=== PATIENT | male | born 1945 | race Two or more races ===

== ENCOUNTER 2024-09-29 11:55 | Inpatient (IN) | payer OTHER ==
[~2024-09-29] VITALS: Ht 182.9 cm; Wt 72.5 kg
--- NOTE | 2024-09-29 12:19 | ED.PDOC ---
History of Present Illness HPI Comments 79-year-old male who comes in with chief complaint of rectal bleeding today. The patient was currently on warfarin for atrial fibrillation and possible DVT in the left leg. The patient was currently at [facility] and they noticed a significant amount of blood so they called 911. When the paramedics arrived, the patient had stable vital signs. The patient was complaining of some chest pain but no shortness for breath. Patient had some lab work done recently and the INR was significantly elevated. EN route, the patient's Accu- Chek was 96. The patient was able to answer all of her questions but the patient's seems somewhat pale. He is also complaining of some abdominal pain. 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 Location: Generalized abdominal pain Past Medical History PAST MEDICAL HISTORY: AFIB, PE Past Medical History (Other): DVT Constitutional: denies: chills, diaphoresis, fatigue, fever, malaise, sweats, weakness, others EENTM: denies: blurred vision, double vision, ear bleeding, ear discharge, ear drainage, ear pain, ear ringing, eye pain, eye redness, hearing loss, mouth pain, mouth swelling, nasal discharge, nose bleeding, nose congestion, nose pain, photophobia, tearing, throat pain, throat swelling, voice changes, others Respiratory: denies: cough, hemoptysis, orthopnea, SOB at rest, shortness of breath, SOB with excertion, stridor, wheezing, others Cardiovascular: reports: chest pain; denies: dizzy spells, diaphoresis, Dyspnea on exertion, edema, irregular heart beat, left arm pain, lightheadedness, palpi tations, PND, syncope, others Gastrointestinal: reports: abdominal pain, rectal bleeding; denies: abdomen distended, blood streaked bowels, constipated, diarrhea, dysphagia, difficulty swallowing, hematemesis, melena, nausea, poor appetite, poor fluid intake, rectal pain, vomiting, others Genitourinary: denies: burning, dysuria, flank pain, frequency, hematuria, incontinence, penile discharge, penile sore, pain, testicle pain, testicle swelling, urgency, others Neurological: denies: dizziness, fainting, headache, left sided numbness, left sided weakness, numbness, paresthesia, pre-existing deficit, right sided numbness, right sided weakness, seizure, speech problems, tingling, tremors, weakness, others Musculoskeletal: reports: others (Bleeding around the PICC line on the left arm); denies: back pain, gout, joint pain, joint swelling, muscle pain, muscle stiffness, neck pain Integumetry: denies: bruises, change in color, change in hair/nails, dryness, laceration, lesions, lumps, rash, wounds, others Allergic/Immunocompromised: denies: Difficulty Healing, Frequent Infections, Hives, Itching, others Hematologic/Lymphatic: denies: anemia, blood clots, easy bleeding, easy brui sing, swollen glands, others Endocrine: denies: excessive hunger, excessive sweating, excessive thirst, ex cessive urination, flushing, intolerance to cold, intolerance to heat, unexplained weight gain, unexplained weight loss, others Psychiatric: denies: anxiety, bipolar disorder, depression, hopeless, panic disorder, schizophrenia, sleepless, suicidal, others Physical Exam General Appearance: Moderate Distress, Obese HEENT: Pale Conjuntivae (L), Pale Conjuntivae (R), Pharynx Normal, TMs Normal Neck: Full Range of Motion, Non-Tender, Normal, Normal Inspection Respiratory: Chest Non-Tender, Lungs Clear, No Accessory Muscle Use, No Respiratory Distress, Normal Breath Sounds Cardiovascular: No Edema, No JVD, No Murmur, No Gallop, Normal Peripheral Pulses, Regular Rate/Rhythm Breast Exam: Deferred Gastrointestinal: Diffuse, No Organomegaly, No Pulsatile Mass, Normal Bowel Sounds, Soft, Tenderness Genitalia: Deferred Pelvic: Deferred Rectal: Heme positive stool Extremities: No calf tenderness, Normal capillary refill, No pedal edema Musculoskeletal : Apperance: Normal Neurologic: Alert, 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 Was a procedure done?: No EKG EKG : Pulse Rate (adult): 92 [place]: Normal Cardiac Rhythm: Afib Hypertrophy: LVH ST: Nonsp Differential Dx Considerations may include: AFib, GI bleed, anemia, generalized weakness X-Ray, Labs, Meds, VS Vital Signs Date Time Temp Pulse Resp B/P (MAP) Pulse Ox O2 Delivery O2 Flow Rate FiO2 09/29/24 12:35 97.5 103 20 97/61 (73) 91 97.5 09/29/24 12:06 92 09/29/24 12:05 98.4 82 18 100/64 (76) 94 Lab Test 09/29/24 12:25 Range/Units White Blood Count 6.7 4.4-10.8 10^3/uL Red Blood Count 3.75 L 4.5-5.90 10^6/uL Hemoglobin 12.2 L 13.5-17.5 g/dL Hematocrit 36.4 L 41.0-53.0 % Mean Corpuscular Volume 97.2 80.0-100.0 fL Mean Corpuscular Hemoglobin 32.7 H 28.0-32.0 pg Mean Corpuscular Hemoglobin Concent 33.6 32.0-36.0 g/dL Red Cell Distribution Width 18.3 H 11.8-14.3 % Platelet Count 170 140-450 10^3/uL Mean Platelet Volume 7.2 6.9-10.8 fL Neutrophils (%) (Auto) 77.3 37.0-80.0 % Lymphocytes (%) (Auto) 12.3 10.0-50.0 % Monocytes (%) (Auto) 5.2 0.0-12.0 % Eosinophils (%) (Auto) 4.1 0.0-7.0 % Basophils (%) (Auto) 1.1 0.0-2.0 % Neutrophils # (Auto) 5.2 1.6-8.6 10 ^3/uL Lymphocytes # (Auto) 0.8 0.4-5.4 10 ^3/uL Monocytes # (Auto) 0.3 0-1.3 10 ^3/uL Eosinophils # (Auto) 0.3 0-0.8 10 ^3/uL Basophils # (Auto) 0.1 0-0.2 10 ^3/uL Nucleated Red Blood Cells 0.0 % Prothrombin Time 9.3-11.8 sec Prothrombin Time INR > 8.0 *H 0.9-1.15 Activated Partial Thromboplast Time 68.7 H 24.5-34.5 SEC Sodium Level 138 136-145 mmol/L Potassium Level 4.4 3.5-5.1 mmol/L Chloride Level 104 98-107 mmol/L Carbon Dioxide Level 26 20-31 mmol/L Anion Gap 8 5-15 Blood Urea Nitrogen 36 H 9-23 mg/dL Creatinine 1.86 H 0.700-1.30 mg/dL Glomerular Filtration Rate Calc 37 >90 mL/min BUN/Creatinine Ratio 19.4 10.0-20.0 Serum Glucose 87 74-106 mg/dL Calcium Level 11.1 H 8.7-10.4 mg/dL Current Medications Medications (Trade) Dose Ordered Sig/Leola Route Start Time Stop Time Status Last Admin Sodium Chloride 500 ml @ 500 mls/hr Q1H ONCE IV 09/29/24 12:15 09/29/24 13:14 DC 09/29/24 12:39 Phytonadione (Vitamin K Oral Susp) 10 mg ONCE ONCE PO 09/29/24 13:30 09/29/24 13:31 DC 09/29/24 14:20 IV Hep-Lock was established We did type and screen the patient The patient was bolused with normal saline at a 500 cc bolus The CBC is within normal limits The chemistry panel shows a BUN of 36 and creatinine of 1.86 The INR is greater than 8.0 At this time, we did contact [place] and they gave us authorization for admission The doctor was Dr. Lamar The authorization #[id number] The patient was being admitted because the patient was unstable for transfer secondary to the active bleeding Images Reviewed?: Images reviewed and evaluated by me Time of 1ST Reevaluation: 13:23 Reevaluation 1ST: Unchanged Patient Education/Counseling: Diagnosis, Treatment, Prognosis Family Education/Counseling: No Family Present Departure 1 Departure Time of Disposition: 14:53 Impression: Primary Impression: Lower GI bleed Additional Impression: Elevated INR Disposition: 09 ADMITTED INPATIENT Admit to: [facility] Condition: Fair Critical Care Note Critical Care Time?: Yes (35 min-critical care time only) Stability Stability form required: Yes Unstable for transfer: Telemetry monitoring (Telemetry monitoring required), ED Physician Assesment (Clinical assesment) Heart Score Heart Score: Heart Score Response (Comments) Value History N/A 0 EKG N/A 0 Age N/A 0 Risk Factors N/A 0 Troponin N/A 0 Total 0 KERRY GONZALES MD Sep 29, 2024 12:19
[2024-09-29 12:30] VITALS: PULSE 95; RESP 16; O2SAT 93
[2024-09-29] MEDS: SODIUM CHLORIDE 0.9% 500 ML IV ONE (12:39)
[2024-09-29 12:47] LABS: Basophils # (auto) 0.1 10 ^3/uL (0-0.2); Basophils % (auto) 1.1 % (0.0-2.0); Eosinophils # (auto) 0.3 10 ^3/uL (0-0.8); Eosinophils % (auto) 4.1 % (0.0-7.0); Hematocrit 36.4 % (41.0-53.0); Hemoglobin 12.2 g/dL (13.5-17.5); Lymphocytes # (auto) 0.8 10 ^3/uL (0.4-5.4); Lymphocytes % (auto) 12.3 % (10.0-50.0); Mean Corpuscular Hemoglobin 32.7 pg (28.0-32.0); Mean Corpuscular Hgb Conc. 33.6 g/dL (32.0-36.0); Mean Corpuscular Volume 97.2 fL (80.0-100.0); Monocytes # (auto) 0.3 10 ^3/uL (0-1.3); Monocytes % (auto) 5.2 % (0.0-12.0); Neutrophils # (auto) 5.2 10 ^3/uL (1.6-8.6); Neutrophils % (auto) 77.3 % (37.0-80.0); Platelet Count (auto) 170 10^3/uL (140-450); Red Blood Cells 3.75 10^6/uL (4.5-5.90); Red Cell Distribution Width 18.3 % (11.8-14.3); White Blood Cell 6.7 10^3/uL (4.4-10.8)
[2024-09-29 13:04] LABS: Anion Gap 8 (5-15); Carbon Dioxide 26 mmol/L (20-31); Chloride 104 mmol/L (98-107); Potassium 4.4 mmol/L (3.5-5.1); Sodium 138 mmol/L (136-145)
[2024-09-29 13:10] LABS: BUN/Creatinine Ratio 19.4 (10.0-20.0); Glucose 87 mg/dL (74-106)
[2024-09-29 13:12] LABS: Blood Urea Nitrogen 36 mg/dL (9-23); Calcium 11.1 mg/dL (8.7-10.4)
[2024-09-29 13:19] LABS: Partial Thromboplastin Time 68.7 SEC (24.5-34.5)
[2024-09-29 13:21] LABS: INR > 8.0 (0.9-1.15)
[2024-09-29] MEDS ORDERED: DOCUSATE SOD 100 MG CAP PO PRN (14:00)
[2024-09-29] MEDS ORDERED: ACETAMINOPHEN 325 MG TAB PO PRN (14:00)
[2024-09-29] MEDS ORDERED: MAALOX PLUS or MAALOX 30 ML PO PRN (14:00)
[2024-09-29] MEDS ORDERED: LORazepam 0.5 MG TAB PO PRN (14:00)
--- NOTE | 2024-09-29 14:19 | DVH ---
CHEST RADIOGRAPH Indication: Patient has a PICC line as well as a GI bleed Technique: Single frontal view of the chest was obtained Comparison: None FINDINGS: Lines and Tubes: None. Left-sided approach single lead pacemaker terminating within the right ventri justin. There is a tubular structure coursing through the medial right upper extremity, through the lowe r axillary region and across of the right mid lung zone which is most likely external to the patient. Lungs: Diffuse interstitial prominence. Obscuration of the left hemidiaphragm lucency superimposed o jed the cardiac silhouette. No pneumothorax. Cardiomediastinal contours: Borderline cardiomegaly with [id number] atherosclerotic calcificati on and uncoiling of the aorta. Bones: No acute osseous abnormality. Partially visualized thoracolumbar hardware. IMPRESSION: Mild pulmonary vascular congestion. Obscuration of the left hemidiaphragm with retrocardiac lucency. Correlate for gas-filled superimpos ed stomach over the cardiac silhouette from elevated hemidiaphragm with no hernia noted on same day C T abdomen and pelvis. Underlying small left-sided pleural effusion/ atelectasis / pneumonia cannot e xcluded. The PICC is not definitely visualized.
[2024-09-29] MEDS: PHYTONADIONE(VitK) ORAL Susp 10mg/10ml(1mg/ml) PO ONE (14:20)
--- NOTE | 2024-09-29 14:39 | DVH ---
Exam: CT CT AB PEL WO CON-NO ORAL OR IV History: pain Comparison Study: None Technique: Multidetector spiral CT of the abdomen was performed from lung bases to pubic symphysis. Imaging was performed without IV contrast. Axial, coronal and sagittal multiplanar reformats were ob tained from the axial data set by the technologist. Radiation Dose : 1. Abdomen/Pelvis: CTDIvol 24.6 mGy, DLP 1593.84 mGy*cm. Findings: Evaluation of solid organs is limited due to lack of intravenous contrast use. Lung Bases: There is a 1.0 x 0.7 cm nodule in the right middle lobe. Scattered linear/ interstitial d ensities at the lung bases may represent scarring and/or atelectasis . There is coronary artery calci fication and/or stents. Partial visualization of pacemaker leads. There are several small calcified l ymph nodes in the visualized chest which are commonly due to old granulomatous disease. Liver: The liver is normal in size. No focal lesions. Gallbladder and Biliary Tree: Gallbladder is surgically absent. Mild prominence of the common bile du ct is likely secondary to post surgical change. Spleen: Unremarkable Pancreas: The pancreas is grossly normal in appearance. Adrenal Glands: Unremarkable Kidneys: 6 mm exophytic density from the right kidney which is too small to characterize. There is a poorly defined exophytic density from the left inferior renal pole that measures about 1.0 cm and att enuates higher than simple fluid. No hydronephrosis or renal calculi. Bladder: Mild urinary bladder wall thickening. Several small urinary bladder diverticula. Bowel: The stomach is grossly normal in appearance. Small bowel and colon are normal in caliber and d istribution. The appendix is not visualized; however, no secondary findings of acute appendicitis id entified. Moderate rectal stool. Minimal colonic diverticulosis without evidence of diverticulitis. Ascites: Absent Lymphadenopathy: No mesenteric, retroperitoneal or periportal lymphadenopathy. Abdominal Wall and Mesentery: There is a 1.7 x 0.8 cm soft tissue density focus in the subcutaneous r ight flank region. Vasculature: The visualized abdominal aorta is normal in size and caliber. Evaluation of abdominal a nd pelvic vessels is limited due to lack of intravenous contrast. An IVC filter is in place. Pelvic Organs: Prostate is nonenlarged and has internal calcification. Musculoskeletal: Lumbar dextrocurvature. Extensive postsurgical changes in the spine related to poste rior fusion. The visualized hardware appears grossly intact. Advanced multilevel degenerative disc ch anges with bridging anterior osteophytes in the thoracic and lumbar spine. IMPRESSION: 1. No evidence of bowel obstruction. Moderate stool within the rectum. 2. Urinary bladder demonstrates mild wall thickening and several small diverticula. Findings could b e related to bladder outlet obstruction or chronic inflammation. 3. Nonspecific soft tissue focus in the subcutaneous right flank region. This is somewhat linear and may represent scarring or another benign process. 4. Small poorly defined left renal hypodensity in the inferior pole that attenuates higher than simpl e fluid. Recommend correlation with nonemergent ultrasound. 5. Mild bibasilar atelectasis/ scarring. There is also a 1.0 x 0.7 cm nodule in the right middle lob e. Recommend correlation with nonemergent CT chest. Radiation optimization: All CT scans at this facility use at least one of these dose optimization zahc hniques: automated exposure control mA and/or kV adjustment per patient size (includes targeted exam s where dose is matched to clinical indication) or iterative reconstruction.
--- NOTE | 2024-09-29 14:45 | DVHHP2 ---
History of Present Illness Reason for Visit: gi bleed History of Present Illness 79-year-old with a past medical history of AFib PE and DVT comes to the ED with complaints of having active rectal bleeding patient states that he is currently taking warfarin to manage his AFib and also states that he has been diagnosed with a left-sided DVT patient is from a nursing facility and states that he has been having significant amounts of blood in his stool on initial evaluation in the ED patient was hemodynamically stable however it was noted that his blood pressure was slightly labile H&H has currently remained stable however patient was recommended for inpatient evaluation and continued management for suspected acute GI bleed Cardiovascular: AFIB, HTN Review of Systems Constitutional: Yes: Weakness; No: Fever, Chills, Sweats, Malaise, Other Eyes: No: Pain, Vision change, Conjunctivae inflammation, Eyelid inflammation, Other, Redness ENT: No: Ear pain, Ear discharge, Nose pain, Nose discharge, Nose congestion, Mouth pain, Mouth swelling, Throat pain, Throat swelling, Other Respiratory: No: Cough, Dry, Shortness of breath, SOB with excertion, Wheezing, Hemoptysis, Pleuritic Pain, Sputum, Wheezing, Other Cardiovascular: Palpitations; No: Chest Pain, Orthopnea, Paroxysmal Noc. Dyspnea, Edema, Lt Headedness, Other Gastrointestinal: Melena; No: Nausea, Vomiting, Abdominal Pain, Diarrhea, Constipation, Hematochezia, Other Genitourinary: No Dysuria, No Frequency, No Incontinence, No Hematuria, No Retention, No Other Musculoskeletal: No: other, neck pain, shoulder pain, arm pain, back pain, hand pain, leg pain, foot pain Skin: No: Rash, Lesions, Jaundice, Bruising, Other Neurological: No: Weakness, Numbness, Incoordination, Change in speech, Confusion, Seizures, Other Allergies: Coded Allergies: NO KNOWN ALLERGIES (Unverified , 09/29/24) Medications Current Medications Medications Dose Ordered Sig/Leola Route Start Time Stop Time Status Last Admin Dose Admin Pantoprazole Sodium 50 ml @ 10 mls/hr Q5H IV 09/29/24 14:00 UNV Sodium Chloride 1,000 ml @ 60 mls/hr [id number] IV 09/29/24 14:00 UNV Lorazepam 0.5 mg Q6HP PRN PO 09/29/24 14:00 UNV Al Hydrox/Mg Hydrox/Simethicone 30 ml Q6HP PRN PO 09/29/24 14:00 UNV Docusate Sodium 100 mg BIDPRN PRN PO 09/29/24 14:00 UNV Acetaminophen 650 mg Q6HP PRN PO 09/29/24 14:00 UNV Acetaminophen/ Hydrocodone Bitart 1 tab Q4HP PRN PO 09/29/24 14:00 UNV Ondansetron HCl 4 mg Q4HP PRN IV 09/29/24 14:00 UNV Morphine Sulfate 2 mg Q4HPRN PRN IV 09/29/24 14:00 UNV Exam Vital Signs Vital Signs Date Time Temp Pulse Resp B/P (MAP) Pulse Ox O2 Delivery O2 Flow Rate FiO2 09/29/24 12:35 97.5 103 20 97/61 (73) 91 97.5 General Appearance: Alert, Oriented X3 HEENT: Atraumatic, PERRLA Respiratory: Clear to auscultation, Normal air movement Cardiovascular: Regular rate, Normal S1, Normal S2 Abdominal: Normal bowel sounds, Soft, No tenderness Extremities: No clubbing, No cyanosis, No edema Skin: No rashes, No breakdown Neuro: Normal gait, Normal speech Psych/Mental Status: Mood NL Labs/Xrays Labs Test 09/29/24 12:25 Range/Units White Blood Count 6.7 4.4-10.8 10^3/uL Red Blood Count 3.75 L 4.5-5.90 10^6/uL Hemoglobin 12.2 L 13.5-17.5 g/dL Hematocrit 36.4 L 41.0-53.0 % Mean Corpuscular Volume 97.2 80.0-100.0 fL Mean Corpuscular Hemoglobin 32.7 H 28.0-32.0 pg Mean Corpuscular Hemoglobin Concent 33.6 32.0-36.0 g/dL Red Cell Distribution Width 18.3 H 11.8-14.3 % Platelet Count 170 140-450 10^3/uL Mean Platelet Volume 7.2 6.9-10.8 fL Neutrophils (%) (Auto) 77.3 37.0-80.0 % Lymphocytes (%) (Auto) 12.3 10.0-50.0 % Monocytes (%) (Auto) 5.2 0.0-12.0 % Eosinophils (%) (Auto) 4.1 0.0-7.0 % Basophils (%) (Auto) 1.1 0.0-2.0 % Neutrophils # (Auto) 5.2 1.6-8.6 10 ^3/uL Lymphocytes # (Auto) 0.8 0.4-5.4 10 ^3/uL Monocytes # (Auto) 0.3 0-1.3 10 ^3/uL Eosinophils # (Auto) 0.3 0-0.8 10 ^3/uL Basophils # (Auto) 0.1 0-0.2 10 ^3/uL Nucleated Red Blood Cells 0.0 % Prothrombin Time 9.3-11.8 sec Prothrombin Time INR > 8.0 *H 0.9-1.15 Activated Partial Thromboplast Time 68.7 H 24.5-34.5 SEC Sodium Level 138 136-145 mmol/L Potassium Level 4.4 3.5-5.1 mmol/L Chloride Level 104 98-107 mmol/L Carbon Dioxide Level 26 20-31 mmol/L Anion Gap 8 5-15 Blood Urea Nitrogen 36 H 9-23 mg/dL Creatinine 1.86 H 0.700-1.30 mg/dL Glomerular Filtration Rate Calc 37 >90 mL/min BUN/Creatinine Ratio 19.4 10.0-20.0 Serum Glucose 87 74-106 mg/dL Calcium Level 11.1 H 8.7-10.4 mg/dL Assessment/Plan Assessment/Plan Admit to [facility] Suspected acute GI bleed Unconfirmed if it is upper or lower GI bleed In his case of action GI consult IV hydration NPO IV Protonix drip Monitor for acute signs of infection Patient was signs dehydration with a elevated BUN and creatinine Repeat a.m. labs monitor for acute improvement Elevated hypercalcemia also noted underlying cause unconfirmed at this time We will continue with current plan of IV hydration management History of AFib/DVT Due to current complaint acute GI bleed We will hold all anticoagulation at this time Plan discussed with: Patient My Orders Orders - JOAQUIN RODRIGUEZ MD Procedure Category Date Status Time * Gi [facility] CONS 09/29/24 Transmitted 14:00 Pantoprazole PHA 09/29/24 Logged 40mg/50ml Ns Ae 14:00 Admit ADMIT 09/29/24 Transmitted 14:00 Code Status CODE 09/29/24 Transmitted 14:00 Vital Signs [facility] 09/29/24 In Process 14:00 Review Orders With [facility] 09/29/24 In Process Adm. 14:00 Npo (Nothing By DIET 09/29/24 Transmitted Mouth) Diet Dinner Sodium Chloride 0.9% PHA 09/29/24 Logged 14:00 Lorazepam Tablet PHA 09/29/24 Logged (Ativan Tablet) 14:00 Alum & Mag PHA 09/29/24 Logged Hydrox-Simethicone 14:00 Docusate Sodium PHA 09/29/24 Logged Capsule (Colace 14:00 Acetaminophen Tablet PHA 09/29/24 Logged (Tylenol Tablet) 14:00 Notify Of Changes [facility] 09/29/24 In Process From Base 14:00 Advance Directive [facility] 09/29/24 In Process 14:00 Basic Metabolic Panel LAB 09/30/24 Verified 04:00 Complete Blood Count LAB 09/30/24 Verified 04:00 Patient Condition ORDERS 09/29/24 Transmitted 14:00 Allergies [facility] 09/29/24 In Process 14:00 Hydrocodone-Acet PHA 09/29/24 Logged 5/325mg Tab ([place] 14:00 Ondansetron Hcl PHA 09/29/24 Logged (Zofran) 14:00 Morphine Sulfate PHA 09/29/24 Logged Injection 14:00 Notify Md Of Changes [facility] 09/29/24 In Process From Base 14:00 Oxygen By Nasal RT 09/29/24 Transmitted Cannula 14:00 Problem List: (1) Chronic a-fib (2) GIB (gastrointestinal bleeding) Date of Service: Sep 29, 2024 Billing Provider: JOAQUIN RODRIGUEZ MD Common Visit Codes: 29198-[id number] INP/OBS CARE (HIGH) JOAQUIN RODRIGUEZ MD Sep 29, 2024 14:45
[2024-09-29] MEDS: SODIUM CHLORIDE 0.9% 1,000 ML IV SCH (15:21)
[2024-09-29] MEDS: PANTOPRAZOLE 40mg/50ML NS AE 50 ML IV SCH (15:21)
[2024-09-29 20:21] VITALS: PULSE 119; RESP 16; O2SAT 96
[2024-09-29] MEDS: HYDROcodone-ACET 5/325MG TAB PO PRN (20:56)
[2024-09-29 21:06] LABS: Basophils % (auto) 0.9 % (0.0-2.0); Eosinophils # (auto) 0.3 10 ^3/uL (0-0.8); Hemoglobin 12.1 g/dL (13.5-17.5); Monocytes # (auto) 0.3 10 ^3/uL (0-1.3); Nucleated Red Blood Cells % 0.1 %; Red Blood Cells 3.66 10^6/uL (4.5-5.90); White Blood Cell 5.4 10^3/uL (4.4-10.8)
[2024-09-29 21:11] LABS: Basophils # (auto) 0 10 ^3/uL (0-0.2); Hematocrit 35.7 % (41.0-53.0); Lymphocytes # (auto) 0.6 10 ^3/uL (0.4-5.4); Lymphocytes % (auto) 11.7 % (10.0-50.0); Mean Corpuscular Hgb Conc. 33.9 g/dL (32.0-36.0); Mean Corpuscular Volume 97.5 fL (80.0-100.0); Monocytes % (auto) 5.6 % (0.0-12.0); Neutrophils # (auto) 4.2 10 ^3/uL (1.6-8.6); Neutrophils % (auto) 76.8 % (37.0-80.0); Platelet Count (auto) 151 10^3/uL (140-450)
[2024-09-29 21:18] LABS: Urine Bacteria None Seen /hpf (None Seen)
[2024-09-29 22:21] LABS: Urine Blood 3+ /uL (Negative); Urine Clarity Turbid (Clear); Urine Color Light-Orange (Yellow); Urine Hyaline Cast FEW /lpf (0 - 2); Urine Protein, UAD 1+ (Negative); Urine Specific Gravity 1.018 (1.001-1.035); Urine Urobilinogen Normal (Negative); Urine WBC 29 /hpf (0 - 3); Urine pH 5.5 (5.0-9.0)
[2024-09-29 22:31] LABS: INR > 8.0 (0.9-1.15)
[2024-09-30] VITALS (10 sets, daily range): BP systolic 101–121; BP diastolic 62–70; PULSE 87–119; RESP 16–18; TEMP 97.9–98.7; O2SAT 98–99
[2024-09-30] MEDS: MORPHINE SULFATE INJ 2 MG/ml SYRG IV PRN (02:14)
[2024-09-30 04:07] LABS: Basophils # (auto) 0 10 ^3/uL (0-0.2); Basophils % (auto) 0.9 % (0.0-2.0); Eosinophils # (auto) 0.3 10 ^3/uL (0-0.8); Eosinophils % (auto) 5.4 % (0.0-7.0); Hemoglobin 11.2 g/dL (13.5-17.5); Lymphocytes # (auto) 0.7 10 ^3/uL (0.4-5.4); Lymphocytes % (auto) 12.5 % (10.0-50.0); Mean Corpuscular Hemoglobin 33.3 pg (28.0-32.0); Mean Corpuscular Hgb Conc. 32.9 g/dL (32.0-36.0); Mean Corpuscular Volume 101.1 fL (80.0-100.0); Monocytes # (auto) 0.4 10 ^3/uL (0-1.3); Monocytes % (auto) 6.6 % (0.0-12.0); Neutrophils # (auto) 4.1 10 ^3/uL (1.6-8.6); Neutrophils % (auto) 74.6 % (37.0-80.0); Nucleated Red Blood Cells % 0.1 %; Platelet Count (auto) 135 10^3/uL (140-450); Red Blood Cells 3.36 10^6/uL (4.5-5.90); Red Cell Distribution Width 18.8 % (11.8-14.3); White Blood Cell 5.6 10^3/uL (4.4-10.8)
[2024-09-30 04:15] LABS: Sodium 141 mmol/L (136-145)
[2024-09-30 04:16] LABS: Anion Gap 7 (5-15); Carbon Dioxide 25 mmol/L (20-31)
[2024-09-30 04:22] LABS: BUN/Creatinine Ratio 18.6 (10.0-20.0); Glucose 77 mg/dL (74-106)
[2024-09-30 04:28] LABS: Blood Urea Nitrogen 30 mg/dL (9-23); Calcium 10.6 mg/dL (8.7-10.4); Chloride 109 mmol/L (98-107)
[2024-09-30] MEDS: ONDANSETRON HCL 4 MG/2 ML VIAL IV PRN (05:33)
[2024-09-30] MEDS: CARVEDILOL 3.125 MG TAB PO ONE (06:19)
[2024-09-30] MEDS: dilTIAZem 25 MG/5 ML VIAL IV ONE (07:58)
[2024-09-30] MEDS: PHYTONADIONE (VIT K)10 MG/ML 1ML VIAL SUBCUT ONE (10:23)
--- NOTE | 2024-09-30 10:25 | DVHPN2 ---
Subjective Patient denies any symptoms at this time Reviewed: Care Plan, H&P, Labs, Medications Changes from previous H/P or p: No Changes General: Per HPI Eyes: No Pain, No Vision change, No Conjunctivae inflammation, No Eyelid inflammation, No Other, No Redness ENT: No Ear pain, No Ear discharge, No Nose pain, No Nose discharge, No Nose congestion, No Mouth pain, No Mouth swelling, No Throat pain, No Throat swelling, No Other Cardiovascular: No Chest Pain; Palpitations; No Orthopnea, No Paroxysmal Noc. Dyspnea, No Edema, No Lt Headedness, No Other Respiratory: No Cough, No Dry, No Shortness of breath, No SOB with excertion, No Wheezing, No Hemoptysis, No Pleuritic Pain, No Sputum, No Other Gastrointestinal: No Nausea, No Vomiting, No Abdominal Pain, No Diarrhea, No Constipation; Melena; No Hematochezia, No Other Genitourinary: No Dysuria, No Frequency, No Incontinence, No Hematuria, No Retention, No Other Musculoskeletal: No other, No neck pain, No shoulder pain, No arm pain, No back pain, No hand pain, No leg pain, No foot pain Skin: No Rash, No Lesions, No Jaundice, No Bruising, No Other Objective Vitals Vital Signs Date Time Temp Pulse Resp B/P (MAP) Pulse Ox O2 Delivery O2 Flow Rate FiO2 09/30/24 09:00 99 16 122/65 (84) 99 09/30/24 07:30 Room Air* 0 21 09/29/24 20:21 97.9 97.9 Intake/Output Intake and Output 09/30/24 07:00 Intake Total 1640 ml Balance 1640 ml Intake IV Total 1640 ml General Appearance: Alert, Oriented X3, Cooperative, moderate distress HEENT: Atraumatic, PERRLA Lungs: Clear to auscultation, Normal air movement Cardiovascular: Normal S1, Normal S2, Other (AFib with RVR) Abdomen: Other (Melena stool) Genitourinary: Hematuria, Other (King catheter) Musculoskeletal: Normal sensory function, Normal motor function Extremities: No clubbing, No cyanosis, Normal pulses Neuro: Normal speech Psych/Mental Status: Mental status NL, Mood NL Medications Current Medications Medications Dose Ordered Sig/Leola Route Start Time Stop Time Status Last Admin Dose Admin Pantoprazole Sodium 50 ml @ 10 mls/hr Q5H IV 11/28/24 14:00 09/30/24 09:58 10 MLS/HR Sodium Chloride 1,000 ml @ 60 mls/hr [id number] IV 09/29/24 14:00 09/30/24 06:40 60 MLS/HR Lorazepam 0.5 mg Q6HP PRN PO 09/29/24 14:00 Al Hydrox/Mg Hydrox/Simethicone 30 ml Q6HP PRN PO 09/29/24 14:00 Docusate Sodium 100 mg BIDPRN PRN PO 09/29/24 14:00 Acetaminophen 650 mg Q6HP PRN PO 09/29/24 14:00 Acetaminophen/ Hydrocodone Bitart 1 tab Q4HP PRN PO 09/29/24 14:00 09/30/24 04:28 1 TAB Ondansetron HCl 4 mg Q4HP PRN IV 09/29/24 14:00 09/30/24 05:33 4 MG Morphine Sulfate 2 mg Q4HPRN PRN IV 09/29/24 14:00 09/30/24 02:14 2 MG Carvedilol 3.125 mg Q12HR PO 09/30/24 18:15 Laboratory Results Laboratory Tests 09/30/24 03:55 Chemistry Test 09/29/24 12:25 09/30/24 03:55 Calcium Level 11.1 mg/dL (8.7-10.4) H 10.6 mg/dL (8.7-10.4) H Coagulation Test 09/29/24 12:25 09/29/24 20:47 Prothrombin Time sec (9.3-11.8) sec (9.3-11.8) Prothrombin Time INR > 8.0 (0.9-1.15) *H > 8.0 (0.9-1.15) *H Activated Partial Thromboplast Time 68.7 SEC (24.5-34.5) H Urinalysis Test 09/29/24 21:15 Urine Color Light-orange (Yellow) Urine Clarity Turbid (Clear) H Urine pH 5.5 (5.0-9.0) Urine Specific [place] 1.018 (1.001-1.035) Urine Protein 1+ (Negative) H Urine Ketones Negative (Negative) Urine Blood 3+ /uL (Negative) H Urine Nitrite Negative (Negative) Urine Bilirubin Negative (Negative) Urine Urobilinogen Normal mg/dL (Negative) Urine Leukocyte Esterase 1+ /uL (Negative) Urine RBC 534 /hpf (0 - 3) Urine WBC 29 /hpf (0 - 3) Urine Squamous Epithelial Cells Few /hpf (<5) Urine Bacteria None seen /hpf (None Seen) Urine Hyaline Casts Few /lpf (0 - 2) Urine Granular Casts Few /lpf (0) Urine Glucose Normal mg/dL (Normal) Labs and/or images reviewed: Labs reviewed by me, Image(s) reviewed by me Assessment/Plan Assessment/Plan Impression: -GI bleed, lower with noted melena stool -atrial fibrillation with rapid ventricular rate -pulmonary vascular congestion, question shantelle acute on chronic systolic heart failure -history of PE -history DVT -Obesity Plan: -assess patient in the emergency room. Noted melena stool and hematuria. Patient's INR continues to be greater than eight. Discussed case with Gastroenterology who was on-call. We will attempt to correct INR. -FFP x2 -repeat AquaMEPHYTON 10 mg subQ -rate controlled with beta dileep and calcium channel dileep -continue Protonix drip -repeat labs this a.m. and H&H this afternoon -clear liquid diet -patient is unstable to transfer given AFib with RVR and active lower GI bleed. Patient also coagulopathic secondary to warfarin toxicity. -long discussion made with the patient and diagnosis. Patient is agreeable to FFP transfusion. All questions answered. Given active bleeding, continue was step-down ICU status. Critical care time spent with patient discussing and formulating plan of care: 40 minutes. This does not include time spent performing procedures. This medical document was created using an electronic medical record system with [employer] dictation system. Although this document has been carefully reviewed, there may still be some phonetic and typographical errors. These areas are purely typographical due to imperfections of the software programs, and do not reflect any compromise in the patient's medical care. Plan discussed with: Patient, Other (RN, Digital Analytics Manager.) My Orders Orders - SANTHOSH FREED NP Procedure Category Date Status Time Clear Liq Diet DIET 09/30/24 Transmitted Lunch PTPTT LAB 09/30/24 Logged 09:50 Date of Service: Sep 30, 2024 Billing Provider: SANTHOSH FREED NP Common Visit Codes: [id number]-[id number] CARE 30-74 MIN SANTHOSH FREED PERSONAL FINANCIAL REPRESENTATIVE Sep 30, 2024 10:25
[2024-09-30] MEDS: dilTIAZem HCL 180MG ER CAP PO ONE (10:31)
[2024-09-30 11:17] LABS: Basophils # (auto) 0.1 10 ^3/uL (0-0.2); Basophils % (auto) 0.9 % (0.0-2.0); Eosinophils # (auto) 0.3 10 ^3/uL (0-0.8); Eosinophils % (auto) 4.8 % (0.0-7.0); Hematocrit 29.8 % (41.0-53.0); Lymphocytes # (auto) 0.6 10 ^3/uL (0.4-5.4); Lymphocytes % (auto) 10.7 % (10.0-50.0); Mean Corpuscular Hemoglobin 32.7 pg (28.0-32.0); Mean Corpuscular Hgb Conc. 33.4 g/dL (32.0-36.0); Mean Corpuscular Volume 97.9 fL (80.0-100.0); Monocytes # (auto) 0.3 10 ^3/uL (0-1.3); Monocytes % (auto) 5.7 % (0.0-12.0); Neutrophils # (auto) 4.7 10 ^3/uL (1.6-8.6); Neutrophils % (auto) 77.9 % (37.0-80.0); Nucleated Red Blood Cells % 0.2 %; Platelet Count (auto) 157 10^3/uL (140-450); Red Blood Cells 3.04 10^6/uL (4.5-5.90); Red Cell Distribution Width 18.2 % (11.8-14.3)
[2024-09-30 11:18] LABS: Potassium 4.5 mmol/L (3.5-5.1); Sodium 140 mmol/L (136-145)
[2024-09-30 11:19] LABS: Anion Gap 7 (5-15); Calcium 10.4 mg/dL (8.7-10.4); Carbon Dioxide 23 mmol/L (20-31)
[2024-09-30 11:24] LABS: BUN/Creatinine Ratio 20.5 (10.0-20.0); Glucose 85 mg/dL (74-106)
[2024-09-30 11:28] LABS: INR 3.04 (0.9-1.15); Partial Thromboplastin Time 41.3 SEC (24.5-34.5); Prothrombin Time 29.7 sec (9.3-11.8)
[2024-09-30 11:31] LABS: Blood Urea Nitrogen 32 mg/dL (9-23); Chloride 110 mmol/L (98-107)
[2024-09-30 17:11] LABS: Hematocrit 27.2 % (41.0-53.0)
[2024-09-30 17:22] LABS: INR 1.73 (0.9-1.15); Prothrombin Time 17.6 sec (9.3-11.8)
--- NOTE | 2024-09-30 18:29 | DVHINCON2 ---
GI Consult Consult Note Date of Consultation: 07/22/2024 Chief Complaint: GI bleed Referring Physician: Alert History of present illness: Patient is a 79-year-old male with atrial fibrillation, history of DVT on anticoagulation with warfarin, history of PE, admitted with GI bleed with the INR greater than eight. Repeat INR is currently less than two. Patient was given vitamin K. warfarin was held. Patient denies any abdominal pain, does not recall when his recent colonoscopy was. Patient was admitted from a [facility]. Patient's hemoglobin dropped from 12 to nine. GI consultation was obtained for evaluation. Patient denies hematemesis, dysphagia or odynophagia. Denies any history of diarrhea. Past Medical History: As above Past Surgical History: Noncontributory Social History: No current tobacco alcohol or recreational drug use Family History: GI diseases or malignancies Current Medications Medications (Trade) Dose Ordered Sig/Leola Route Start Time Stop Time Status Last Admin Dose Admin Pantoprazole Sodium 50 ml @ 10 mls/hr Q5H IV 09/29/24 14:00 09/30/24 15:23 10 MLS/HR Sodium Chloride 1,000 ml @ 60 mls/hr [id number] IV 09/29/24 14:00 09/30/24 06:40 60 MLS/HR Lorazepam (Ativan Tablet) 0.5 mg Q6HP PRN PO 09/29/24 14:00 Al Hydrox/Mg Hydrox/Simethicone (Maalox Plus) 30 ml Q6HP PRN PO 09/29/24 14:00 Docusate Sodium (Colace Capsule) 100 mg BIDPRN PRN PO 09/29/24 14:00 Acetaminophen (Tylenol Tablet) 650 mg Q6HP PRN PO 09/29/24 14:00 Acetaminophen/ Hydrocodone Bitart ([place] 5/325MG Tab) 1 tab Q4HP PRN PO 09/29/24 14:00 09/30/24 04:28 1 TAB Ondansetron HCl (Zofran) 4 mg Q4HP PRN IV 09/29/24 14:00 09/30/24 05:33 4 MG Morphine Sulfate 2 mg Q4HPRN PRN IV 09/29/24 14:00 09/30/24 16:37 2 MG Carvedilol (Coreg Tablet) 3.125 mg Q12HR PO 09/30/24 18:15 Review of Systems: 12 point review of systems as per HPI Physical exam: General: Elderly male lying in bed no distress Head: NC/AT/EOMI, PERRLA, O/P clear Heart: Regular rate and rhythm Abdomen: Soft nontender nondistended Extremity: No clubbing or cyanosis, edema is present at the shins bilaterally Neuro: Moves all four extremities no asterixis Labs: As above Imaging: IMPRESSION: 1. No evidence of bowel obstruction. Moderate stool within the rectum. 2. Urinary bladder demonstrates mild wall thickening and several small diverticula. Findings could be related to bladder outlet obstruction or chronic inflammation. 3. Nonspecific soft tissue focus in the subcutaneous right flank region. This is somewhat linear and may represent scarring or another benign process. 4. Small poorly defined left renal hypodensity in the inferior pole that attenuates higher than simple fluid. Recommend correlation with nonemergent ultrasound. 5. Mild bibasilar atelectasis/ scarring. There is also a 1.0 x 0.7 cm nodule in the right middle lobe. Recommend correlation with nonemergent CT chest. Assessment:/plan 1. A GI bleed due to Coumadin toxicity, supratherapeutic INR upon admission now improved. 2. Differential diagnosis includes diverticular bleed versus hemorrhoids versus AVM versus polyp or malignancy versus other 1. Continue to hold warfarin 2. Follow H and H 3. Hold off on colonoscopy at this time, consider colonoscopy as an outpatient 4. Diet as tolerated 5. Avoid aspirin, NSAIDs Date of Service: Sep 30, 2024 Billing Provider: PEACE MONROE MD Common Visit Codes: [id number] INP/OBS CARE (HIGH) Consultation Codes: [id number] CONSULT <60MIN PEACE MONROE MD Sep 30, 2024 18:29
[2024-09-30] MEDS: CARVEDILOL 3.125 MG TAB PO SCH (18:38)
[2024-10-01] MEDS: PANTOPRAZOLE 40 MG/10 ML VIAL INJ IV ONE (06:27)
[2024-10-01 07:45] VITALS: PULSE 94; RESP 18; O2SAT 100
--- NOTE | 2024-10-01 10:46 | ECG ---
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
--- NOTE | 2024-10-01 13:58 | DVHPN2 ---
Reviewed: Care Plan, H&P, Labs, Medications General: Per HPI Eyes: No Pain, No Vision change, No Conjunctivae inflammation, No Eyelid inflammation, No Other, No Redness ENT: No Ear pain, No Ear discharge, No Nose pain, No Nose discharge, No Nose congestion, No Mouth pain, No Mouth swelling, No Throat pain, No Throat swelling, No Other Cardiovascular: No Chest Pain; Palpitations; No Orthopnea, No Paroxysmal Noc. Dyspnea, No Edema, No Lt Headedness, No Other Respiratory: No Cough, No Dry, No Shortness of breath, No SOB with excertion, No Wheezing, No Hemoptysis, No Pleuritic Pain, No Sputum, No Other Gastrointestinal: No Nausea, No Vomiting, No Abdominal Pain, No Diarrhea, No Constipation; Melena; No Hematochezia, No Other Genitourinary: No Dysuria, No Frequency, No Incontinence, No Hematuria, No Retention, No Other Musculoskeletal: No other, No neck pain, No shoulder pain, No arm pain, No back pain, No hand pain, No leg pain, No foot pain Skin: No Rash, No Lesions, No Jaundice, No Bruising, No Other Objective Vitals Vital Signs Date Time Temp Pulse Resp B/P (MAP) Pulse Ox O2 Delivery O2 Flow Rate FiO2 10/01/24 12:00 97.7 85 20 114/70 (85) 95 97.7 10/01/24 07:45 Room Air* 0 21 Intake/Output Intake and Output 10/01/24 07:00 Intake Total 2585.0 ml Output Total 800 ml Balance 1785.0 ml Intake Oral 80 ml IV Total 1605.0 ml Blood Product 900 ml Output Urine Total 800 ml General Appearance: Alert, Oriented X3, Cooperative, moderate distress HEENT: Atraumatic, PERRLA Lungs: Clear to auscultation, Normal air movement Cardiovascular: Normal S1, Normal S2, Other (AFib with RVR) Abdomen: Other (Melena stool) Genitourinary: Hematuria, Other (King catheter) Musculoskeletal: Normal sensory function, Normal motor function Extremities: No clubbing, No cyanosis, Normal pulses Neuro: Normal speech Psych/Mental Status: Mental status NL, Mood NL Medications Current Medications Medications Dose Ordered Sig/Leola Route Start Time Stop Time Status Last Admin Dose Admin Pantoprazole Sodium 50 ml @ 10 mls/hr Q5H IV 09/29/24 14:00 10/01/24 11:30 10 MLS/HR Sodium Chloride 1,000 ml @ 60 mls/hr [id number] IV 09/29/24 14:00 09/30/24 23:30 60 MLS/HR Lorazepam 0.5 mg Q6HP PRN PO 09/29/24 14:00 Al Hydrox/Mg Hydrox/Simethicone 30 ml Q6HP PRN PO 09/29/24 14:00 Docusate Sodium 100 mg BIDPRN PRN PO 09/29/24 14:00 Acetaminophen 650 mg Q6HP PRN PO 09/29/24 14:00 Acetaminophen/ Hydrocodone Bitart 1 tab Q4HP PRN PO 09/29/24 14:00 09/30/24 04:28 1 TAB Ondansetron HCl 4 mg Q4HP PRN IV 09/29/24 14:00 09/30/24 05:33 4 MG Morphine Sulfate 2 mg Q4HPRN PRN IV 09/29/24 14:00 09/30/24 16:37 2 MG Carvedilol 3.125 mg Q12HR PO 09/30/24 18:15 10/01/24 09:46 3.125 MG Laboratory Results Laboratory Tests 09/30/24 10:58 09/30/24 16:50 Coagulation Test 09/30/24 16:50 Prothrombin Time 17.6 sec (9.3-11.8) H Prothrombin Time INR 1.73 (0.9-1.15) H Urinalysis Test 09/29/24 21:15 Urine Color Light-orange (Yellow) Urine Clarity Turbid (Clear) H Urine pH 5.5 (5.0-9.0) Urine Specific [place] 1.018 (1.001-1.035) Urine Protein 1+ (Negative) H Urine Ketones Negative (Negative) Urine Blood 3+ /uL (Negative) H Urine Nitrite Negative (Negative) Urine Bilirubin Negative (Negative) Urine Urobilinogen Normal mg/dL (Negative) Urine Leukocyte Esterase 1+ /uL (Negative) Urine RBC 534 /hpf (0 - 3) Urine WBC 29 /hpf (0 - 3) Urine Squamous Epithelial Cells Few /hpf (<5) Urine Bacteria None seen /hpf (None Seen) Urine Hyaline Casts Few /lpf (0 - 2) Urine Granular Casts Few /lpf (0) Urine Glucose Normal mg/dL (Normal) SUZANNE RG MD Oct 01, 2024 13:58
[2024-10-01 15:25] VITALS: BP 120/70; PULSE 94; RESP 16; RESP 18; TEMP 97.9; O2SAT 93
[2024-10-01 17:00] VITALS: BP 120/74; PULSE 90; RESP 20; O2SAT 92
[2024-10-01 18:46] LABS: INR 1.61 (0.9-1.15); Partial Thromboplastin Time 25.3 SEC (24.5-34.5); Prothrombin Time 16.5 sec (9.3-11.8)
--- NOTE | 2024-10-01 19:02 | PRN ---
Misceleneous Note Note Note October 01, 2024 Subjective: Patient denies any bleeding as does nursing staff. The patient is resting comfortably in bed Current Medications Medications (Trade) Dose Ordered Sig/Leola Route Start Time Stop Time Status Last Admin Dose Admin Pantoprazole Sodium 50 ml @ 10 mls/hr Q5H IV 09/29/24 14:00 10/01/24 15:55 10 MLS/HR Sodium Chloride 1,000 ml @ 60 mls/hr [id number] IV 09/29/24 14:00 10/01/24 15:55 60 MLS/HR Lorazepam (Ativan Tablet) 0.5 mg Q6HP PRN PO 09/29/24 14:00 Al Hydrox/Mg Hydrox/Simethicone (Maalox Plus) 30 ml Q6HP PRN PO 09/29/24 14:00 Docusate Sodium (Colace Capsule) 100 mg BIDPRN PRN PO 09/29/24 14:00 Acetaminophen (Tylenol Tablet) 650 mg Q6HP PRN PO 09/29/24 14:00 Acetaminophen/ Hydrocodone Bitart ([place] 5/325MG Tab) 1 tab Q4HP PRN PO 09/29/24 14:00 09/30/24 04:28 1 TAB Ondansetron HCl (Zofran) 4 mg Q4HP PRN IV 09/29/24 14:00 09/30/24 05:33 4 MG Morphine Sulfate 2 mg Q4HPRN PRN IV 09/29/24 14:00 09/30/24 16:37 2 MG Carvedilol (Coreg Tablet) 3.125 mg Q12HR PO 09/30/24 18:15 10/01/24 09:46 3.125 MG Vital Signs Date Time Temp Pulse Resp B/P (MAP) Pulse Ox O2 Delivery O2 Flow Rate FiO2 10/01/24 17:00 90 20 120/74 (89) 92 10/01/24 14:00 97.7 97.7 10/01/24 07:45 Room Air* 0 21 No: Alert and oriented x4 lethargic no distress NC/AT EOMI PERRLA O/P clear Regular rate and rhythm Soft nontender nondistended abdomen No clubbing cyanosis or edema Hemoglobin 9.0 Assessment:/plan 1. A GI bleed due to Coumadin toxicity, supratherapeutic INR upon admission now improved. Patient's bleeding has slowed down. No bleeding today hemoglobin still decreasing. Likely normalizing. 2. Differential diagnosis includes diverticular bleed versus hemorrhoids versus AVM versus polyp or malignancy versus other 1. Continue to hold warfarin 2. Follow H and H 3. Hold off on colonoscopy at this time, consider colonoscopy as an outpatient unless he has continued bleeding 4. Diet as tolerated 5. Avoid aspirin, NSAIDs, restart anticoagulation when stable PEACE MONROE MD Oct 01, 2024 19:02
[2024-10-01 20:00] VITALS: PULSE 100; PULSE 112; RESP 18; O2SAT 99
[2024-10-01 21:00] VITALS: BP 135/71; PULSE 100; RESP 18; TEMP 97.7; O2SAT 99
[2024-10-02 05:00] VITALS: BP 108/55; PULSE 80; RESP 18; TEMP 97.1; O2SAT 97
[2024-10-02 08:00] VITALS: PULSE 89; PULSE 94; RESP 18; O2SAT 99
--- NOTE | 2024-10-02 08:27 | DVHDS2 ---
Discharge Summary Date of Admission Sep 29, 2024 at 14:00 Labs/Diagnostic Data: Laboratory Results Test 10/01/24 18:20 09/30/24 16:50 09/30/24 10:58 09/29/24 21:15 Prothrombin Time 16.5 sec (9.3-11.8) Prothrombin Time INR 1.61 (0.9-1.15) Activated Partial Thromboplast Time 25.3 SEC (24.5-34.5) Hemoglobin 9.0 g/dL (13.5-17.5) Hematocrit 27.2 % (41.0-53.0) White Blood Count 6.0 10^3/uL (4.4-10.8) Red Blood Count 3.04 10^6/uL (4.5-5.90) Mean Corpuscular Volume 97.9 fL (80.0-100.0) Mean Corpuscular Hemoglobin 32.7 pg (28.0-32.0) Mean Corpuscular Hemoglobin Concent 33.4 g/dL (32.0-36.0) Red Cell Distribution Width 18.2 % (11.8-14.3) Platelet Count 157 10^3/uL (140-450) Mean Platelet Volume 7.5 fL (6.9-10.8) Neutrophils (%) (Auto) 77.9 % (37.0-80.0) Lymphocytes (%) (Auto) 10.7 % (10.0-50.0) Monocytes (%) (Auto) 5.7 % (0.0-12.0) Eosinophils (%) (Auto) 4.8 % (0.0-7.0) Basophils (%) (Auto) 0.9 % (0.0-2.0) Neutrophils # (Auto) 4.7 10 ^3/uL (1.6-8.6) Lymphocytes # (Auto) 0.6 10 ^3/uL (0.4-5.4) Monocytes # (Auto) 0.3 10 ^3/uL (0-1.3) Eosinophils # (Auto) 0.3 10 ^3/uL (0-0.8) Basophils # (Auto) 0.1 10 ^3/uL (0-0.2) Nucleated Red Blood Cells 0.2 % Sodium Level 140 mmol/L (136-145) Potassium Level 4.5 mmol/L (3.5-5.1) Chloride Level 110 mmol/L (98-107) Carbon Dioxide Level 23 mmol/L (20-31) Anion Gap 7 (5-15) Blood Urea Nitrogen 32 mg/dL (9-23) Creatinine 1.56 mg/dL (0.700-1.30) Glomerular Filtration Rate Calc 45 mL/min (>90) BUN/Creatinine Ratio 20.5 (10.0-20.0) Serum Glucose 85 mg/dL (74-106) Calcium Level 10.4 mg/dL (8.7-10.4) Urine Color Light-orange (Yellow) Urine Clarity Turbid (Clear) Urine pH 5.5 (5.0-9.0) Urine Specific [place] 1.018 (1.001-1.035) Urine Protein 1+ (Negative) Urine Ketones Negative (Negative) Urine Blood 3+ /uL (Negative) Urine Nitrite Negative (Negative) Urine Bilirubin Negative (Negative) Urine Urobilinogen Normal mg/dL (Negative) Urine Leukocyte Esterase 1+ /uL (Negative) Urine RBC 534 /hpf (0 - 3) Urine WBC 29 /hpf (0 - 3) Urine Squamous Epithelial Cells Few /hpf (<5) Urine Bacteria None seen /hpf (None Seen) Urine Hyaline Casts Few /lpf (0 - 2) Urine Granular Casts Few /lpf (0) Urine Glucose Normal mg/dL (Normal) Other Laboratory Tests 09/30/24 16:50 09/30/24 10:58 Discharge Statement: "Patient was advised to return to the ER or call 911 if any headaches, dizziness, shortness of breath, chest pain, abdominal pain, bleeding, fevers, or worsening of medical condition. Patient was counseled about treatment plan, medications, possible side effects, patientverbalized understanding. All questions were answered to the best of my ability. This discharge took greater then 30 minutes in planning, reviewing documentation, counseling the patient, and discussing with other team members." ASSESSMENT ASSESSMENT Assessment SUZANNE RG MD Oct 02, 2024 08:27
[2024-10-02 08:52] VITALS: BP 101/71; PULSE 104; RESP 20; TEMP 97.8; O2SAT 98
[2024-10-02] MEDS ORDERED: CARV-214 PO (11:12)
[2024-10-02] MEDS ORDERED: PANT40TA2 PO (11:12)
[2024-10-02 13:05] VITALS: BP 111/64; PULSE 85; RESP 16; TEMP 97.5; O2SAT 97
[2024-10-02 17:20] VITALS: BP 117/67; PULSE 96; RESP 18; TEMP 97.7; O2SAT 96
[2024-10-02 18:44] VITALS: BP 100/68; PULSE 92; RESP 16; TEMP 97.8; O2SAT 98
== END 2024-10-02 19:57 | disposition home or self-care (01) | DRG 377 ==
LOC: EDBD 11:55 → ER 11:55 → TELE 14:00 → TELE-EAST 10-01 15:18
PROVIDERS: ADMIT Hospitalist; ATTEND Nurse Practitioner Acute Care
PROC: 30233K1 Transfusion of Nonautologous Frozen Plasma into Peripheral Vein, Percutaneous Approach (ICD-10-PCS; principal; 2024-09-30)
DX: K92.2 Gastrointestinal hemorrhage, unspecified (principal); N17.0 Acute kidney failure with tubular necrosis; I48.20 Chronic atrial fibrillation, unspecified; E83.52 Hypercalcemia; E86.0 Dehydration; T45.515A Adverse effect of anticoagulants, initial encounter; I10 Essential (primary) hypertension; E66.9 Obesity, unspecified; Z79.01 Long term (current) use of anticoagulants; Z86.711 Personal history of pulmonary embolism; Z86.718 Personal history of other venous thrombosis and embolism; Y92.89 Other specified places as the place of occurrence of the external cause; Z68.27 Body mass index [BMI] 27.0-27.9, adult; D53.9 Nutritional anemia, unspecified
CPT/HCPCS: 36415; 85610; 85730; 93005; 96360; 99291; G0378; J2470